=== PATIENT | male | born 2000 | race Caucasian/White ===

== ENCOUNTER 2021-05-16 09:22 | Emergency (ER) | payer OTHER ==
[2021-05-16] MEDS ORDERED: MUCINEX 600MG600 MG PO (11:02)
[2021-05-16] MEDS ORDERED: TESSALON PERLE100 M1 PO (11:02)
[2021-05-16 11:20] LABS: BASOPHIL 0.3 % (0-2); HCT 43.3 % (42.0-52.0); HGB 14.5 g/dl (13.2-18.0); LYMPHOCYTE 35.2 % (15-48); MCH 28.2 pg (25.0-31.0); MCHC 33.5 g/dL (32.0-36.0); MCV 84.1 fL (78.0-100.0); MONOCYTE 14.3 % (0-12); MPV 8.8 fL (6.0-9.5); NEUTROPHIL 48.9 % (41-80); NRBC 0; PLT 227 K/uL (150-400); RBC 5.15 M/uL (4.70-6.00); RDW 11.4 % (11.5-14.0); WBC 2.9 K/uL (4.0-10.5)
== END 2021-05-16 11:31 | disposition home or self-care (01) ==
LOC: FER 09:22
PROVIDERS: Internal Medicine
DX: U07.1 COVID-19 (principal); J12.82 Pneumonia due to coronavirus disease 2019; F17.290 Nicotine dependence, other tobacco product, uncomplicated; Z88.0 Allergy status to penicillin
CPT/HCPCS: 36415; 71046; 85025

== ENCOUNTER 2021-10-30 07:53 | Emergency (ER) | payer OTHER ==
[~2021-10-30 07:53] MED LIST: MUCINEX 600MG600 MG PO; TESSALON PERLE100 M1 PO
[2021-10-30] MEDS ORDERED: MEDROL 4MG DOSEP4 MG PO (10:10)
[2021-10-30] MEDS ORDERED: NORCO 5-325 TA1 EACH PO (10:10)
[2021-10-30] MEDS ORDERED: FLEXERIL5 MG PO (10:10)
== END 2021-10-30 10:36 | disposition home or self-care (01) ==
LOC: FER 07:53
DX: M51.16 Intervertebral disc disorders with radiculopathy, lumbar region (principal); M48.061 Spinal stenosis, lumbar region without neurogenic claudication; F17.290 Nicotine dependence, other tobacco product, uncomplicated; Z88.0 Allergy status to penicillin; X50.9XXA Other and unspecified overexertion or strenuous movements or postures, initial encounter; Y93.89 Activity, other specified
CPT/HCPCS: 72131; J1170; J1885; J2405